=== PATIENT | female | born 1975 | race Hispanic/Latino ===

== ENCOUNTER 2017-06-07 02:08 | Emergency (ER) | payer SELFPAY ==
[2017-06-07 02:58] LABS: #Eosinphils 0.4 thou/uL (0.0-0.7); #Lymphocytes 3.2 thou/uL (1.20-3.40); #Monocytes 0.4 thou/uL (0.11-0.59); %Basophils 0.5 % (0.0-1.0); %Eosinophils 4.7 % (0.0-10.0); %Lymphocytes 35.3 % (21.0-51.0); %Monocytes 4.2 % (0.0-10.0); %Neutrophils 55.2 % (42.0-75.0); Hemoglobin 13.2 g/dL (12.0-16.0); Mean Corpuscular HGB CONC 34.2 g/dL (32.0-36.0); Mean Corpuscular Hemoglobin 31.9 pg (27.0-31.0); Mean Corpuscular Volume 93.2 fl (81.0-99.0); Platelet Count 235 thou/uL (130-400); RBC Distribution Width 11.8 % (11.5-14.5); Red Blood Cell (RBC) Count 4.14 mill/uL (4.20-5.40)
[2017-06-07] MEDS ORDERED: Ketorolac Tromethamine 30 MG/ML VIAL ONE (03:07)
[2017-06-07 03:21] LABS: ALT (SGPT) 29 U/L (8-55); AST (SGOT) 46 U/L (5-34); Albumin 3.9 g/dL (3.5-5.0); Alkaline Phosphatase 106 U/L (40-150); Anion Gap 10 mmol/L (10-20); BUN (Urea Nitrogen) 24 mg/dL (7.0-18.7); Bilirubin, Total 0.6 mg/dL (0.2-1.2); CK (CPK) 56 U/L (29-168); Calc. Creatinine Clearance 0 mL/min (70-130); Calcium 9.4 mg/dL (7.8-10.44); Carbon Dioxide 27 mmol/L (22-29); Chloride 106 mmol/L (98-107); Estimated GFR-MDRD Greater than 90; Glucose 143 mg/dL (70-105); Potassium 3.7 mmol/L (3.5-5.1); Protein, Total 6.9 g/dL (6.0-8.3); Sodium 139 mmol/L (136-145)
[2017-06-07 03:24] LABS: CKMB 0.8 ng/mL (0-6.6); Troponin I Less than 0.010 ng/mL (< 0.028)
--- NOTE | 2017-06-07 07:42 | RAD ---
SINGLE VIEW CHEST: Date: 06/07/17 COMPARISON: None. HISTORY: Chest pain and vomiting since this morning. FINDINGS: Single view of the chest shows a normal sized cardiomediastinal silhouette. There is no evidence of c onsolidation, mass, or pleural effusion. The bones are unremarkable. IMPRESSION: No evidence of acute cardiopulmonary disease. POS: OFF
--- NOTE | 2017-06-08 18:04 | EKG ---
Test Reason : Blood Pressure : / mmHG Vent. Rate : 074 BPM Atrial Rate : 074 BPM P-R Int : 160 ms QRS Dur : 076 ms QT Int : 386 ms P-R-T Axes : 050 007 020 degrees QTc Int : 428 ms Normal sinus rhythm Normal ECG Confirmed by OCTAVIO MORSE MD ([id number]), film and video editor BONNIE AMAYA ([id number]) on 06/08/2017 6:03:43 PM Referred By: Confirmed By:OCTAVIO MORSE MD
== END 2017-06-07 04:08 | disposition home or self-care (01) ==
LOC: ERS 02:08
DX: R07.89 Other chest pain (principal); M62.838 Other muscle spasm
CPT/HCPCS: 36415; 71045; 80053; 82553; 84484; 85025; 93005; 96374; J1885